=== PATIENT | male | born 1960 | race Caucasian/White ===

== ENCOUNTER 2019-12-12 13:33 | Emergency (ER) | payer BC ==
[~2019-12-12] VITALS: Ht 177.8 cm; Wt 95.3 kg
[2019-12-12 13:35] VITALS: BP 136/71
[2019-12-12] MEDS ORDERED: Methocarbamol 750mg tab ORAL ONE (14:00)
[2019-12-12] MEDS ORDERED: LIDODERM700 M1 TOPIC ×2 (14:47→15:00)
[2019-12-12] MEDS ORDERED: ROBAXIN-750750 MG PO ×2 (14:47→15:00)
[2019-12-12] MEDS ORDERED: TYLENOL EXTRA500 MG ORAL ×2 (14:47→15:00)
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
[2019-12-12 15:03] VITALS: BP 132/70
--- NOTE | 2019-12-12 15:11 | Diagnostic Imaging Report ---
Indication: Trauma, pain Technique: 3 views of the lumbar spine Comparison: None Findings: There is minimal lower lumbar levoscoliotic deformity, predominantly the result of asymmetric disc narrowing at L3-4. Bony alignment is otherwise normal. Vertebral body heights are preserved. There is degenerative disc narrowing at L3-4, L4-5, and to a slight extent at L2-3 and L5-S1. The remaining disc spaces are preserved. The pedicles are intact. Sacral arches are preserved. Sacroiliac joint spaces are preserved. The bowel gas pattern is unremarkable Impression: Degenerative changes, as described. No acute bony trauma
--- NOTE | 2019-12-12 15:12 | Diagnostic Imaging Report ---
Indications: Trauma, pain Technique: 2 views of the thoracic spine Comparison: None Findings: Bony alignment is normal. Vertebral body heights are preserved. There is multilevel mid thoracic degenerative disc narrowing. No acute fractures. No dislocations. Pedicles are intact. Impression: Degenerative changes. No acute bony trauma
--- NOTE | 2019-12-12 15:15 | Diagnostic Imaging Report ---
Indication: Trauma, pain Technique: 3 views of the cervical spine Comparison: none Findings: No prevertebral soft tissue swelling. Bony alignment is normal. There is degenerative disc narrowing at C3-4, C4-5, C5-6, and C6-7. No acute fractures. No dislocations. Impression: Degenerative changes. No acute bony trauma
== END 2019-12-12 15:00 | disposition home or self-care (01) ==
LOC: EMR 14:13
DX: S16.1XXA Strain of muscle, fascia and tendon at neck level, initial encounter (principal); S29.012A Strain of muscle and tendon of back wall of thorax, initial encounter; Z88.0 Allergy status to penicillin; I25.10 Atherosclerotic heart disease of native coronary artery without angina pectoris; I11.9 Hypertensive heart disease without heart failure; V43.52XA Car driver injured in collision with other type car in traffic accident, initial encounter; Y92.410 Unspecified street and highway as the place of occurrence of the external cause; E78.00 Pure hypercholesterolemia, unspecified; K21.9 Gastro-esophageal reflux disease without esophagitis; E11.9 Type 2 diabetes mellitus without complications
CPT/HCPCS: 72020; 72040; 72070; 99284

== ENCOUNTER 2020-06-05 05:39 | Day surgery (SDC) | payer BC ==
[2020-06-05] VITALS (8 sets, daily range): BP systolic 101–115; BP diastolic 68–84
[~2020-06-05] VITALS: Ht 180.3 cm; Wt 95.3 kg
[~2020-06-05 05:39] MED LIST: ASPIRIN500 MG ORAL; D3-501250 MCG PO; FAMOTIDINE20 MG ORAL; FENOFIBRATE145 M1 ORAL; FISH OIL CAP1000 MG ORAL; LIDODERM700 M1 TOPIC; METOPROLOL SUCC25 MG ORAL; MULTIVITAMINS1 EAC2 ORAL; PIOGLITAZONE-M1 EAC1 ORAL; ROBAXIN-750750 MG PO; TYLENOL EXTRA500 MG ORAL; VITAMIN B COMP1 EAC2 ORAL; VYTORIN 10-801 EACH ORAL
[2020-06-05] MEDS ORDERED: LR 1000ml 1,000 ML IVLG SCH ×2 (06:00→07:00)
[2020-06-05] MEDS ORDERED: Midazolam 2mg/2ml Inj ONE (06:31)
[2020-06-05] MEDS ORDERED: fentaNYL 100 mcg/2 mL IV ONE (06:31)
--- NOTE | 2020-06-05 06:47 | Anethesia Preoperative Eval ---
Anesthesia Pre-op PMH/ROS General Date of Evaluation: Jun 05, 2020 Time of Evaluation: 06:44 Anesthesiologist: Martha ASA Score: ASA 2 Mallampati Score Class I : Soft palate, uvula, fauces, pillars visible Class II: Soft palate, uvula, fauces visible Class III: Soft palate, base of uvula visible Class IV: Only hard plate visible Mallampati Classification: Class II Surgeon: Deborah Diagnosis: Abdominal pain Surgical Procedure: Colonoscopy Anesthesia History: none Family History: no anesthesia problems Allergies: Coded Allergies: PENICILLINS (Verified Allergy, Severe, red, swelling, 06/05/20) AMPICILLIN (Verified Allergy, Unknown, 12/12/19) CLINDAMYCIN (Verified Adverse Reaction, Unknown, 06/05/20) C-DIFF Medications: see eMAR Patient NPO?: Yes Past Medical History Cardiovascular: Denies: HTN, CAD, [place], valve dz, arrhythmia, other Pulmonary: Denies: asthma, COPD, AZALEA, other Gastrointestinal/Genitourinary: Reports: GERD; Denies: CRI, ESRD, other Neurologic/Psychiatric: Denies: dementia, CVA, depression/anxiety, TIA, other Endocrine: Reports: DM; Denies: hypothyroidism, steroids, other Hematology/Immune: Denies: anemia, DVT, bleeding disorder, other Musculoskeletal/Integumentary: Denies: OA, RA, DJD, DDD, edema, other Other: other - overweight PMH Narrative: as above PSxH Narrative: See H&P Anesthesia Pre-op Phys. Exam Physician Exam Last Vital Signs Date Time Temp Pulse Resp B/P (MAP) Pulse Ox O2 Delivery O2 Flow Rate FiO2 06/05/20 06:05 97.3 82 18 115/84 98 Room Air Constitutional: NAD Neurologic: CN 2-12 intact Cardiovascular: RRR, no M/R/G Respiratory: CTA Gastrointestinal: S/NT/ND Airway Exam Mallampati Score: Class II MO: full Neck: flexible ROM: full Teeth: intact Dentures: no upper, no lower Anesthesia Pre-op A/P Labs Chemistry Test 06/05/20 06:07 POC Whole Blood Glucose Pending Risk Assessment & Plan Assessment: ASA 2 Plan: MAc Status Change Before Surgery: No Omar Thomas MD Jun 05, 2020 06:47
[2020-06-05] MEDS ORDERED: fentaNYL 100 mcg/2 mL IV PRN (07:00)
[2020-06-05] MEDS ORDERED: LR 1000ml ONE (07:00)
--- NOTE | 2020-06-05 07:24 | Pre-Procedure Note/Attestation ---
Pre-Procedure Note/Attestation Complete Prior to Procedure Planned Procedure: not applicable Procedure Narrative: colonoscopy Indications for Procedure Pre-Operative Diagnosis: abd pain Attestation I attest that I discussed the nature of the procedure; its benefits; risks and complications; and alternatives (and the risks and benefits of such alternatives), prior to the procedure, with the patient (or the patient's legal traveling sales representative). I attest that, if there was a reasonable possibility of needing a blood madrigal sfusion, the patient (or the patient's legal traveling sales representative) was given the [facility] standardized written summary, pursuant to the Justin Roe Blood Safety Act ([place] Health and Safety Code # 1645, as amended). I attest that I re-evaluated the patient just prior to the surgery and that there has been no change in the patient's H&P, except as documented below: Benjamin Pham MD Jun 05, 2020 07:24
--- NOTE | 2020-06-05 07:58 | Immediate Post-Op Evaluation ---
Immediate Post-Op Evalulation Immediate Post-Op Evalulation Procedure: Colonoscopy Date of Evaluation: Jun 05, 2020 Time of Evaluation: 07:57 IV Fluids: 800 Blood Products: none Estimated Blood Loss: none Urinary Output: none Blood Pressure Systolic: 104 Blood Pressure Diastolic: 56 Pulse Rate: 68 Respiratory Rate: 20 O2 Sat by Pulse Oximetry: 99 Temperature (Fahrenheit): 97.6 Pain Score (1-10): 1 Nausea: No Vomiting: No Complications none Patient Status: awake, patent, none Hydration Status: adequate Omar Thomas MD Jun 05, 2020 07:58
--- NOTE | 2020-06-05 08:41 | 48 Hour Post Anesthesia Eval ---
Post Anesthesia Evaluation Procedure: Colonoscopy Date of Evaluation: Jun 05, 2020 Time of Evaluation: 08:40 Blood Pressure Systolic: 125 0: 76 Pulse Rate: 68 Respiratory Rate: 20 Temperature (Fahrenheit): 97.6 O2 Sat by Pulse Oximetry: 98 Airway: patent Nausea: No Vomiting: No Hydration Status: adequate Cardiopulmonary Status: stable Mental Status/LOC: patient returned to baseline Follow-up Care/Observations: n/a Post-Anesthesia Complications: none Follow-up care needed: ready to discharge Omar Thomas MD Jun 05, 2020 08:41
--- NOTE | 2020-06-05 09:09 | Short Stay Surgery H&P ---
History of Present Illness History of Present Illness Chief Complaint see typed H&P HPI Donis Carmichael is a 59 year old male who was admitted on for Abdominal Pain Patient History Allergies: Coded Allergies: PENICILLINS (Verified Allergy, Severe, red, swelling, 06/05/20) AMPICILLIN (Verified Allergy, Unknown, 12/12/19) CLINDAMYCIN (Verified Adverse Reaction, Unknown, 06/05/20) C-DIFF Medication History Scheduled Aspirin (Aspirin), 81 MG ORAL ONCE, (Reported) Cholecalciferol (Vitamin D3) (D3-50), 4,000 MCG PO DAILY, (Reported) Ezetimibe/Simvastatin 10-80MG (Vytorin 10-80 Mg Tablet), 1 TAB ORAL DAILY, (Reported) Famotidine* (Pepcid 20mg tablet*), 40 MG ORAL DAILY, (Reported) Fenofibrate Nanocrystallized (Fenofibrate), 145 MG ORAL DAILY, (Reported) Fish Oil (Fish Oil 1,000 mg Capsule), 3,600 MG ORAL BID, (Reported) Metoprolol Succinate* (Metoprolol Succinate*), 25 MG ORAL BID, (Reported) Multivitamins* (Multivitamins*), 1 TAB ORAL DAILY, (Reported) Pioglitazone Hcl/Metformin Hcl (Pioglitazone-Metformin 15-850), 1 TAB ORAL TWICE A DAY, (Reported) Vitamin B Complex (Vitamin B Complex), 1 CAP ORAL DAILY, (Reported) Physical Exam Vital Signs Last Vital Signs Date Time Temp Pulse Resp B/P (MAP) Pulse Ox O2 Delivery O2 Flow Rate FiO2 06/05/20 08:59 97.0 71 18 111/73 97 Room Air 06/05/20 08:00 3 Labs Laboratory Tests Test 06/05/20 06:07 POC Whole Blood Glucose Pending Plan Attestation Are the patient's medical conditions optimized for surgery? Benjamin Pham MD Jun 05, 2020 09:09
--- NOTE | 2020-06-05 09:10 | Brief Operative Note ---
Immediate Post Operative Note Operative Note Chief Complaint: abd pain Pre-op Diagnosis: abd pain Post-op Diagnosis: descending polyp Surgeon: tia Anesthesiologist: jamarcus Anesthesia: MAC Specimen: yes Complications: none Condition: stable Fluids: per anesthesia Estimated Blood Loss: none Implant(s) used?: No Benjamin Pham MD Jun 05, 2020 09:10
--- NOTE | 2020-06-05 09:11 | Brief Operative Note ---
Immediate Post Operative Note Operative Note Chief Complaint: abd pain Pre-op Diagnosis: abd pain Procedure: colon Post-op Diagnosis: descending polyp Surgeon: tia Anesthesiologist: see report Anesthesia: MAC Specimen: yes Complications: none Condition: stable Fluids: per anesthesia Estimated Blood Loss: none Drains: none Implant(s) used?: No Benjamin Pham MD Jun 05, 2020 09:11
--- NOTE | 2020-06-05 23:45 | Operative Note - Dictated ---
DATE OF OPERATION: 06/05/2020 GASTROENTEROLOGY PROCEDURE PROCEDURE: Colonoscopy with biopsy. SURGEON: Benjamin Pham MD ANESTHESIA: Please see the separate anesthesiologist notes for details. PRE-ENDOSCOPIC DIAGNOSIS: Abdominal pain in the left lower quadrant. POST-ENDOSCOPIC DIAGNOSES: 1. Diminutive polyp in the proximal descending colon, status post biopsy removal. 2. External hemorrhoids. DESCRIPTION OF PROCEDURE: The procedure, its risks, indications, alternatives, and possible complications including, but not limited to bleeding, infection, perforation, , and anesthesia complications were explained to the patient and informed consent was obtained. Patient was then sedated in the left lateral decubitus position and rectal exam was done, which was unremarkable. The colonoscope was then introduced into the rectum and advanced to 15 cm into the terminal ileum. The colonoscope was then gradually withdrawn and mucosa examined carefully. Examination of the terminal ileal mucosa did not reveal any abnormalities. The right and the left colon were devoid of any inflammatory changes. There was a diminutive polyp in the proximal descending colon, which was removed with a biopsy forceps. Random biopsies of the right colon and the left colon were submitted to pathology for review. The colonoscope was removed. The patient was sent to recovery in good condition. COMPLICATIONS: None. RECOMMENDATIONS: 1. Follow up biopsy results. 2. Outpatient followup. Benjamin Pham M.D. DR: SHANTI JOB#: [id number] CC: Benjamin Pham M.D.; Fax#: [phone]
== END 2020-06-05 09:00 | disposition home or self-care (01) ==
LOC: GAS 05:39
DX: K63.5 Polyp of colon (principal); K64.4 Residual hemorrhoidal skin tags; Z88.0 Allergy status to penicillin; E11.9 Type 2 diabetes mellitus without complications; K21.9 Gastro-esophageal reflux disease without esophagitis; E66.3 Overweight; Z68.29 Body mass index [BMI] 29.0-29.9, adult; Z79.82 Long term (current) use of aspirin
CPT/HCPCS: 45380; 82962; 94003; J2250; J2704; J3010; J7120; U0004; 94150